=== PATIENT | male | born 1955 | race Caucasian/White ===

== ENCOUNTER 2020-08-13 16:04 | Emergency (ER) | payer MEDICARE ==
[~2020-08-13] VITALS: Ht 170.2 cm; Wt 130.0 kg
[2020-08-13 16:05] VITALS: BP 202/113
[2020-08-13] MEDS ORDERED: ATEN50TA2 PO ×2 (16:14→17:05)
== END 2020-08-13 17:23 | disposition home or self-care (01) ==
LOC: M ED 16:04
DX: Z76.0 Encounter for issue of repeat prescription (principal); I10 Essential (primary) hypertension; Z79.899 Other long term (current) drug therapy